=== PATIENT | female | born 1940 | race Two or more races ===

== ENCOUNTER 2017-04-21 04:00 | Emergency (ER) | payer OTHER, MEDICAID ==
[~2017-04-21] VITALS: Ht 167.6 cm; Wt 78.0 kg
[2017-04-21 06:07] LABS: Urine RBC None Seen /hpf (0 - 4)
[2017-04-21 06:21] LABS: Urine Bilirubin Negative (Negative); Urine Blood Negative /uL (Negative); Urine Color Yellow (Yellow); Urine Glucose Normal (Normal); Urine Ketone Negative (Negative); Urine Mucus FEW (None Seen); Urine Nitrite Negative (Negative); Urine Squamous Epithelial Cell FEW /hpf (<5)
[2017-04-21 06:32] LABS: Basophils # (auto) 0 uL; Basophils % (auto) 0.3 % (0.0-2.0); Eosinophils # (auto) 0.1 uL; Eosinophils % (auto) 0.9 % (0.0-7.0); Hematocrit 40.8 % (36.0-46.0); Hemoglobin 13.8 g/dL (12.2-16.2); Lymphocytes # (auto) 2.1 uL; Lymphocytes % (auto) 27.5 % (10.0-50.0); Mean Corpuscular Hemoglobin 30.4 pg (28.0-32.0); Mean Corpuscular Hgb Conc. 33.8 g/dL (32.0-36.0); Mean Platelet Volume 8.6 fL (6.9-10.8); Monocytes # (auto) 0.6 uL; Monocytes % (auto) 8.6 % (0.0-12.0); Neutrophils # (auto) 4.7 uL; Neutrophils % (auto) 62.7 % (37.0-80.0); Nucleated Red Blood Cells % 0.1 %; Platelet Count (auto) 146 10^3/uL (140-450); Red Cell Distribution Width 13.5 % (11.8-14.3); White Blood Cell 7.5 10^3/uL (4.4-10.8)
[2017-04-21 06:50] LABS: Albumin 3.6 g/dL (3.4-5.0); BUN/Creatinine Ratio 23.9; Bilirubin, Total 0.2 mg/dL (0.2-1.0); Calcium 9.6 mg/dL (8.5-10.1); Potassium 3.8 mmol/L (3.5-5.1); Total Protein 7.1 g/dL (6.4-8.2)
[2017-04-21 07:07] VITALS: BP 148/79
[2017-04-21] MEDS ORDERED: SODIUM CHLORIDE 0.9% 1,000 ML IVB ONE (07:36)
[2017-04-21] MEDS ORDERED: cefTRIAXone 1GM/50ML D5W 50 ML IV ONE (07:45)
[2017-04-21 08:06] LABS: Magnesium 2.2 mg/dL (1.6-2.6)
== END 2017-04-21 09:44 | disposition home or self-care (01) ==
LOC: EDBD 04:00 → ER 04:09
DX: E11.9 Type 2 diabetes mellitus without complications (principal); I10 Essential (primary) hypertension; M81.0 Age-related osteoporosis without current pathological fracture
CPT/HCPCS: 36415; 70450; 73110; 80053; 81001; 83735; 84484; 85025; 93005; 94761; 96365; 99285; J0696; J7030